=== PATIENT | female | born 1970 | race Caucasian/White ===

== ENCOUNTER 2023-04-25 10:20 | Emergency (ER) | payer MEDICARE, BC, MEDICAID, SELFPAY ==
[2023-04-25] VITALS (7 sets, daily range): BP systolic 116–152; BP diastolic 51–79; PULSE 74–82; RESP 12–22; TEMP 36.9; O2SAT 95–98
--- NOTE | 2023-04-25 10:31 | EDS_ITS ---
HPI <Dr. Brendan Sosa MD - Last Filed: 04/28/23 15:55> History of Present Illness Chief Complaint: Chest Pain Narrative Narrative: Patient presents with shortness of breath while driving from [place] to [place]. She has never had a PE or DVT. She was driving back to [place]. She has been off her psychiatric meds for about 1 month. She has a diagnosis of demonic possession. But she just had the demons removed in the last 2 or 3 weeks. God told her to bone char puller and call EMS because her heart and lungs had collapsed. She denies that she ever had chest pain when I asked her although she did state this to one of the nurses. She does have a history of these intermittent episodes of dyspnea that come and go. They never know why she gets them. She states she needs a new doctor because her doctor does not treat her right. She denies history of asthma or heart disease. Only family history of medical problems with cancer in her mother. No DVT or PE. She does not know what causes her episodes of dyspnea that occur like this. She states she did not sleep well last night and has not been sleeping well for days and that might contribute to it. She does not know what psychiatric medicines she stopped recently. But she has been on Haldol in the past. PFSH <Dr. Brendan Sosa MD - Last Filed: 04/28/23 15:55> PFSH Allergy/AdvReac Type Severity Reaction Status Date / Time haloperidol [From Haldol] Allergy Unknown PT UNABLE Unverified 04/25/23 12:04 TO RESPOND-NEEDS F/U Social History Smoking Status: Never smoker ROS <Dr. Brendan Sosa MD - Last Filed: 04/28/23 15:55> ROS ED Constitutional Constitutional ED: Denies chills, fever(s) or subjective Eyes Eyes: Denies change in vision ENT ENT ED: Denies rhinorrhea or sore throat Cardiovascular Cardiovascular: Denies chest pain or paroxysmal nocturnal dyspnea Respiratory/Chest Respiratory/Chest: Reports cough and dyspnea; Denies paroxysmal nocturnal dyspnea or sputum Gastrointestinal Gastrointestinal: Denies abdominal pain, nausea or vomiting Genitourinary Genitourinary ED: Denies dysuria Musculoskeletal Musculoskeletal: Denies myalgias Integumentary Denies rash Neurologic Neurologic: Denies headache(s), paresthesias or weakness Psychiatric Psychiatric: Reports other Details: History of demonic possession currently off medications ; Denies suicidal ideation or suicidal thoughts Hematologic/Lymphatic Hematologic/Lymphatic: Denies easy bleeding or easy bruising Allergic/Immunologic Allergic/Immunologic ED: Denies urticaria EXAM <Dr. Brendan Sosa MD - Last Filed: 04/28/23 15:55> Physical Exam Const Vital Signs: 04/25/23 10:21 04/25/23 10:27 04/25/23 10:34 Temperature 98.5 F Temperature Source Temporal Pulse Rate 82 Respiratory Rate 22 H Respiratory Effort Normal Non-Labored Blood Pressure 152/79 H Blood Pressure Mean 103 Pulse Ox 98 Oxygen Delivery Method Room Air Room Air 04/25/23 11:21 04/25/23 12:21 04/25/23 13:21 Temperature Temperature Source Pulse Rate Respiratory Rate 20 H 22 H Respiratory Effort Blood Pressure 150/72 H Blood Pressure Mean 98 Pulse Ox Oxygen Delivery Method 04/25/23 15:00 04/25/23 18:19 Temperature Temperature Source Pulse Rate 79 74 Respiratory Rate 18 12 Respiratory Effort Blood Pressure 143/69 H 116/51 L Blood Pressure Mean 93 72 Pulse Ox 95 95 Oxygen Delivery Method Room Air <Dr. Jem Gleason DO - Last Filed: 04/25/23 18:32> Physical Exam Const Vital Signs: 04/25/23 10:21 04/25/23 10:27 04/25/23 10:34 Temperature 98.5 F Temperature Source Temporal Pulse Rate 82 Respiratory Rate 22 H Respiratory Effort Normal Non-Labored Blood Pressure 152/79 H Blood Pressure Mean 103 Pulse Ox 98 Oxygen Delivery Method Room Air Room Air 04/25/23 11:21 04/25/23 12:21 04/25/23 13:21 Temperature Temperature Source Pulse Rate Respiratory Rate 20 H 22 H Respiratory Effort Blood Pressure 150/72 H Blood Pressure Mean 98 Pulse Ox Oxygen Delivery Method 04/25/23 15:00 04/25/23 18:19 Temperature Temperature Source Pulse Rate 79 74 Respiratory Rate 18 12 Respiratory Effort Blood Pressure 143/69 H 116/51 L Blood Pressure Mean 93 72 Pulse Ox 95 95 Oxygen Delivery Method Room Air MDM <Dr. Brendan Sosa MD - Last Filed: 04/28/23 15:55> MDM MDM Narrative Medical decision making narrative: Patient CBC is overall normal. Patient's electrolytes are normal. She does have mild elevation of glucose that does not need treatment. Patient's liver function test are overall normal. Patient's serum is negative. Patient serum alcohol is negative Patient's urine toxicology screen is negative. Patient's COVID and flu are negative. My independent interpretation of her single view chest x-ray shows no acute process. There are some changes that I think are likely due to body habitus. Final reading said vascular congestion mild degree of. But I think this is likely habitus changes clinically. Patient is medically cleared for psychiatric evaluation and admission if needed. We were able to contact her brother. He is her power of employment attorney. She is evidently under court order to get injectable psychiatric meds every 2 weeks. She took off about a month ago and they have not been able to find her. She does start having hallucinations if she does not get her meds. I still do not know exactly what her meds are though. Patient states that she is fine now. That Abraham came down and blew air into her lungs and heart and fix them. She wants to go. But we explained that she is not caring for herself. Is not safe for her to be out by herself and we need to get her stabilized. She will be pink slipped for her safety. Her brother was good with this plan as he has concerns about her safety. When patient walks, she grunts on expiration. But she does this while in the room. But her breath sounds are normal. Her saturations are normal. We did walk her. Her saturations dropped to 90% but then came back up to 96. Because her history is very difficult to obtain we did pursue further evaluation. I did do a repeat delta 1 and now she never had chest pain read this is normal. Did a CTA of her chest that is negative. I think her mild desaturation is likely due to her body habitus and large weight. I see no sign of acute disease that would prevent psychiatric evaluation and admission. 1800: Le: Signed out to me pending placement. Patient has been pink slipped. Patient accepted to [facility] psychiatric facility. Lab Data Attestation: I reviewed the patient's lab results. Labs: Laboratory Results - last 24 hr 04/25/23 04/25/23 04/25/23 10:45 13:07 14:10 WBC 7.4 RBC 4.80 Hgb 14.1 Hct 43.6 MCV 90.8 MCH 29.4 MCHC 32.3 RDW Std Deviation 41.3 RDW Coeff of Oliver 12.5 Plt Count 355 MPV 9.3 Immature Gran % (Auto) 0.400 Neut % (Auto) 60.3 Lymph % (Auto) 25.0 [place] % (Auto) 12.2 H Eos % (Auto) 1.6 Baso % (Auto) 0.5 Absolute Neuts (auto) 4.5 Absolute Lymphs (auto) 1.85 Nucleated RBC % 0 Sodium 138 Potassium 4.2 Chloride 105 Carbon Dioxide 28.0 Anion Gap 5 BUN 10 Creatinine 0.69 Est GFR (MDRD) Af Amer 116 Est GFR (MDRD) Non-Af 96 BUN/Creatinine Ratio 14.6 Glucose 112 H Calcium 8.8 Total Bilirubin 0.40 AST 9 L ALT 33 Alkaline Phosphatase 89 Troponin I High Sens 6 7 Total Protein 6.7 Albumin 3.0 L Globulin 3.7 Albumin/Globulin Ratio 0.8 L Serum , Qual NEGATIVE Urine Opiates Screen NEGATIVE Urine Methadone Screen NEGATIVE Ur Barbiturates Screen NEGATIVE Ur Phencyclidine Scrn NEGATIVE Ur Amphetamines Screen NEGATIVE MDMA (Ecstasy) Screen NEGATIVE U Benzodiazepines Scrn NEGATIVE Urine Cocaine Screen NEGATIVE U Cannabinoids Screen NEGATIVE Ur Drug Screen Comment Ethyl Alcohol < 3.0 Radiography Diagnostic Testing: Clinical Impression(s) from Imaging Studies Chest X-Ray 04/25/23 11:10 IMPRESSION: Vascular congestion. Mild degree of CHF. Electronically Signed: Garrett Mena MD at 11:23 EDT , Chest CTA 04/25/23 13:57 IMPRESSION: No evidence of pulmonary embolism. Mild increased markings at the lung bases suggestive of atelectasis. No evidence of CHF. Electronically Signed: Garrett Mena MD at 15:02 EDT , EKG Initial EKG: Comments: My independent interpretation of the patient's EKG done for dyspnea shows a normal sinus rhythm with a rate of 82.. No ventricular ectopy. No acute ST elevation or depression in the EKG was done while she was complaining of dyspnea. AR interval, QRS duration and QTc are normal. <Dr. Jem Gleason, DO - Last Filed: 04/25/23 18:32> [facility] Narrative Medical decision making narrative: Patient CBC is overall normal. Patient's electrolytes are normal. She does have mild elevation of glucose that does not need treatment. Patient's liver function test are overall normal. Patient's serum is negative. Patient serum alcohol is negative Patient's urine toxicology screen is negative. Patient's COVID and flu are negative. My independent interpretation of her single view chest x-ray shows no acute process. There are some changes that I think are likely due to body habitus. Final reading said vascular congestion mild degree of. But I think this is likely habitus changes clinically. Patient is medically cleared for psychiatric evaluation and admission if needed. We were able to contact her brother. He is her power of employment attorney. She is evidently under court order to get injectable psychiatric meds every 2 weeks. She took off about a month ago and they have not been able to find her. She does start having hallucinations if she does not get her meds. I still do not know exactly what her meds are though. Patient states that she is fine now. That Abraham came down and blew air into her lungs and heart and fix them. She wants to go. But we explained that she is not caring for herself. Is not safe for her to be out by herself and we need to get her stabilized. She will be pink slipped for her safety. Her brother was good with this plan as he has concerns about her safety. When patient walks, she grunts on expiration. But she does this while in the room. But her breath sounds are normal. Her saturations are normal. We did walk her. Her saturations dropped to 90% but then came back up to 96. Because her history is very difficult to obtain we did pursue further evaluation. I did do a repeat delta 1 and now she never had chest pain read this is normal. Did a CTA of her chest that is negative. I think her mild he said duration is likely due to her body habitus and large weight. I see no sign of acute disease that would prevent psychiatric evaluation and admission. 1800: Le: Signed out to me pending placement. Patient has been pink slipped. Patient accepted to [facility] psychiatric facility. Lab Data Labs: Laboratory Results - last 24 hr 04/25/23 04/25/23 04/25/23 10:45 13:07 14:10 WBC 7.4 RBC 4.80 Hgb 14.1 Hct 43.6 MCV 90.8 MCH 29.4 MCHC 32.3 RDW Std Deviation 41.3 RDW Coeff of Oliver 12.5 Plt Count 355 MPV 9.3 Immature Gran % (Auto) 0.400 Neut % (Auto) 60.3 Lymph % (Auto) 25.0 [place] % (Auto) 12.2 H Eos % (Auto) 1.6 Baso % (Auto) 0.5 Absolute Neuts (auto) 4.5 Absolute Lymphs (auto) 1.85 Nucleated RBC % 0 Sodium 138 Potassium 4.2 Chloride 105 Carbon Dioxide 28.0 Anion Gap 5 BUN 10 Creatinine 0.69 Est GFR (MDRD) Af Amer 116 Est GFR (MDRD) Non-Af 96 BUN/Creatinine Ratio 14.6 Glucose 112 H Calcium 8.8 Total Bilirubin 0.40 AST 9 L ALT 33 Alkaline Phosphatase 89 Troponin I High Sens 6 7 Total Protein 6.7 Albumin 3.0 L Globulin 3.7 Albumin/Globulin Ratio 0.8 L Serum , Qual NEGATIVE Urine Opiates Screen NEGATIVE Urine Methadone Screen NEGATIVE Ur Barbiturates Screen NEGATIVE Ur Phencyclidine Scrn NEGATIVE Ur Amphetamines Screen NEGATIVE MDMA (Ecstasy) Screen NEGATIVE U Benzodiazepines Scrn NEGATIVE Urine Cocaine Screen NEGATIVE U Cannabinoids Screen NEGATIVE Ur Drug Screen Comment Ethyl Alcohol < 3.0 Radiography Diagnostic Testing: Clinical Impression(s) from Imaging Studies Chest X-Ray 04/25/23 11:10 IMPRESSION: Vascular congestion. Mild degree of CHF. Electronically Signed: Garrett Mena MD at 11:23 EDT , Chest CTA 04/25/23 13:57 IMPRESSION: No evidence of pulmonary embolism. Mild increased markings at the lung bases suggestive of atelectasis. No evidence of CHF. Electronically Signed: Garrett Mena MD at 15:02 EDT , Discharge Plan Triage Chief Complaint: Chest Pain ED Provider: Brendan Sosa Dx/Rx/DC Orders Clinical Impression: Acute psychosis, Dyspnea, Hallucinations Primary Care Provider: REVA LEON Referrals: REVA LEON [Other] Disposition Disposition: Psychiatric Hospital or Unit Discharge Location: [facility] Discharge Date/Time: 04/25/23 19:03
--- NOTE | 2023-04-25 10:34 | EKG12_ITS ---
Test Reason : CP Blood Pressure : / mmHG Vent. Rate : 082 BPM Atrial Rate : 082 BPM P-R Int : 136 ms QRS Dur : 080 ms QT Int : 368 ms P-R-T Axes : 060 -11 020 degrees QTc Int : 429 ms Normal sinus rhythm Low voltage QRS Possible Inferior infarct , age undetermined Abnormal ECG Confirmed by ROEL PEREZ, LADARIUS ([id number]), online content editor LITO MONTAÑO ([id number]) on 05/05/2023 7:48:38 AM Referred By: JAYLYN/GWYN Confirmed By:LAURA SEVILLA MD
[2023-04-25 10:58] LABS: Absolute Lymphocyte Count 1.85 X10^3/uL (0.83-4.51); Absolute Neutrophil Count 4.5 X10^3/uL (2.0-7.7); Basophil# 0.04 X10^3/uL; Basophil% 0.5 % (0-1); Eosinophil# 0.12 X10^3/uL; Eosinophils% 1.6 % (0-5); Hematocrit 43.6 % (37-47); Hemoglobin 14.1 g/dL (12.0-15.0); Lymphocyte # 1.85 X10^3/ul (0.83-4.51); Mean Corp Hgb Conc 32.3 g/dL (32-36); Mean Corpuscular Hgb 29.4 pg (27.0-32.0); Mean Corpuscular Volume 90.8 fL (81-99); Mean Platelet Vol. 9.3 fl (6.2-12.0); Monocyte% 12.2 % (0-10); NRBC Flagged by Analyzer 0 % (0-5); Neutrophil # 4.45 X10^3/uL (2.7-7.7); Neutrophil % 60.3 % (47-70); Platelet Count 355 K/mm3 (150-450); RBC Distribution Width CV 12.5 % (11.6-14.6); RBC Distribution Width SD 41.3 fl (35.1-43.9); White Blood Count 7.4 K/mm3 (4.4-11.0)
--- NOTE | 2023-04-25 11:10 | RAD_ITS ---
STUDY: X-RAY CHEST REASON FOR EXAM: Female, 53 years old. SOB TECHNIQUE: Single AP portable view of the chest. COMPARISON: None. FINDINGS: EKG electrodes are seen. Vessel congestion and mild degree of CHF. There is no demonstrated pleural abnormality. There is borderline cardiomegaly. Normal mediastinum and jessa. Normal visualized pulmonary arteries. Normal visualized aortic arch and descending thoracic aorta. Normal visualized thoracic spine. Normal visualized ribs, clavicles, and shoulders. There is no demonstrated abnormality of the visualized soft tissue structures of the upper abdomen. RAD/Chest 1 View (Portable) IMPRESSION: Vascular congestion. Mild degree of CHF. Electronically Signed: Garrett Mena MD at 11:23 EDT ,
[2023-04-25 11:17] LABS: ALB/GLOB Ratio 0.8 RATIO (0.9-2.4); AST(SGOT) 9 U/L (15-37); Alanine Aminotransfer ALT/SGPT 33 U/L (13-56); Alkaline Phosphatase 89 U/L (45-117); Anion Gap 5 (5-15); BUN 10 mg/dL (7-18); BUN/Creat Ratio 14.6 RATIO (10-20); Calcium,Total 8.8 mg/dL (8.5-10.1); Chloride 105 mmol/L (98-107); Creatinine, Serum 0.69 mg/dL (0.55-1.02); EST Glomerular Filtration Rate 96 mL/min (>60); Est Glom Filt Rate - Afr Amer 116 mL/min (>60); Globulin 3.7 g/dL (2.2-4.2); Glucose 112 mg/dL (74-106); Potassium 4.2 mmol/L (3.5-5.1); Protein, Total 6.7 g/dL (6.4-8.2); Sodium Level 138 mmol/L (136-145); Troponin-I HS 6 pg/mL (3.0-54.0)
[2023-04-25 11:19] LABS: Internal QC Validated? YES +Cl - CLEAR BKGD; Pregnancy, Serum, hCG Quali. NEGATIVE Negative
--- NOTE | 2023-04-25 11:19 | CM.ED ---
Social Work SW notified that patient's brother, Smooth [phone], is patient's legal guardian. SW called patient's brother who verbally consents for treatment of patient and provided background information. Smooth reports schizophrenia diagnosis and patient is 2 weeks past due for a court ordered Perseris injection. Brother also reports patient was taking Zyprexa but has been refusing to take medication. Pt reportedly took off in her vehicle to avoid psychiatric medications. Brother reports he has spoken with the tobacco scrap sifter and has a tracker on patient's phone. Brother reports it is typical of patient to seek emergency medical care and then report that God has healed her while being treated. Brother also reports she has not slept all night and has been drinking caffeine while off medications which makes patient increasingly unstable. Brother reports he will have his phone available as needed. SW introduced self and role to patient. Pt was demanding to leave facility and go to her car. Physician is issuing pink slip due to patient's mental status. Pt presents as delusional with mosque preoccupations. SW and RN explained pink slip and patient reports This isn't mental, it is medical. Pt had refused x-ray but now is agreeable. Pt reports, I may need to stay over night but you can't send me to psych hospital, it is against my mosque rights. Pt explained she recently had her demons removed and if she takes psychiatric medications the demons can get back in and she cannot do that because she is a born again Roman Catholic. Pt reports she cannot do psych hospitals and they are against her mosque rights. SW explained patient is still being treated medically and then SW will speak with her. Pt agreeable to medical treatment. Plan: SW to review pink-slip with brother/guardian and complete psychiatric evaluation. Ling Barrios UTILITY SALES AND SERVICE MANAGER, [employer]
[2023-04-25 11:24] LABS: Alcohol, Blood (Medical)-Serum < 3.0 mg/dL
[2023-04-25 13:30] LABS: Amphetamine Urine VISTA NEGATIVE (<1000 ng/mL); Barbiturate Urine VISTA NEGATIVE (< 200 ng/mL); Benzodiazepine Urine VISTA NEGATIVE (< 200 ng/mL); Cocaine Urine VISTA NEGATIVE (< 300 ng/mL); Ecstacy Urine VISTA NEGATIVE (< 500 ng/mL); Methadone Urine VISTA NEGATIVE (< 300 ng/mL); PCP Urine VISTA NEGATIVE (< 25 ng/mL); THC Urine VISTA NEGATIVE (< 50 ng/mL); Vista UDS pH Range 6
--- NOTE | 2023-04-25 13:57 | CT_ITS ---
STUDY: CTA CHEST REASON FOR EXAM: Female, 53 years old. PE. Chest pain. Shortness of breath. RADIATION DOSAGE (If Supplied By Facility): CTDIvol = ( 13.85 ) mGy, DLP = ( 568.35 ) mGycm TECHNIQUE: The examination was performed with the intravenous administration of IV 100mL Isovue-370. Post-processing of the angiographic images was performed, with multiplanar reformation and 3D reconstruction. Individualized dose optimization techniques were used for this CT. COMPARISON: Comparison is made with prior chest radiograph done earlier in the day. FINDINGS: Normal enhancement of the main pulmonary artery and right and left pulmonary arteries. Normal enhancement of the bilateral peripheral pulmonary arteries. There is no demonstrated pulmonary embolism. Normal thoracic aorta and visualized great vessels. There is no demonstrated aortic dissection. Normal heart and pericardium. Normal mediastinum. Normal hilar regions. Normal visualized trachea and bronchi. The lungs are well expanded. Mild increased markings at the lung bases suggestive of bibasilar atelectasis. No evidence of CHF. Normal pleura. Normal chest wall structures. There are mild degenerative changes of thoracic spine. Scattered calcified splenic granulomas. CT/CTA Chest W/WO Contrast IMPRESSION: No evidence of pulmonary embolism. Mild increased markings at the lung bases suggestive of atelectasis. No evidence of CHF. Electronically Signed: Garrett Mena MD at 15:02 EDT ,
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
[2023-04-25 14:32] LABS: Troponin-I HS 7 pg/mL (3.0-54.0)
--- NOTE | 2023-04-25 17:28 | ED.RN ---
report called to jeniffer hurst, nurse Renae
--- NOTE | 2023-04-25 17:29 | ED.RN ---
pt. ya hill called for pt. update on transfer status
== END 2023-04-25 19:03 ==
PROVIDERS: Emergency Provider Emergency Medicine; Visit Provider Emergency Medicine
DX: F23 Brief psychotic disorder (principal); R73.9 Hyperglycemia, unspecified; R06.00 Dyspnea, unspecified; R05.9 Cough, unspecified
CPT/HCPCS: 71045; 71275; 80053; 80307; 82077; 84484; 84703; 85025; 87428; 93005; 99285; Q9967